=== PATIENT | male | born 1990 | race Caucasian/White ===

== ENCOUNTER 2025-03-16 13:18 | Emergency (ER) | payer OTHER, SELFPAY ==
[2025-03-16 13:22] VITALS: BMI 24.2
[2025-03-16 13:23] VITALS: BP 111/75
[2025-03-16 13:25] VITALS: BP 111/75
--- NOTE | 2025-03-16 13:35 | ED.GENMED ---
History of Present Illness
General
Chief Complaint: Abdominal Symptoms
Source: patient
Exam Limitations: none
Time Seen by Provider: 03/16/25 13:29
Nursing documentation reviewed up to this point in time: agreed with
History of Present Illness
History of Present Illness:
34-year-old male presenting to the emergency department today with concerns of nausea vomiting diarrhea starting this morning also has had some sweatiness and some lightheadedness. Denies any recent drug use or alcohol use. Denies any withdrawal
syndromes. Denies any chest pain shortness of breath.
Review of Systems
Review of Systems
Allergies reviewed?: Yes
All Other Systems: ROS reviewed and negative except as documented in HPI and ROS
Phy Exam
Physical Exam
Physical Exam:
GENERAL: Alert , in no apparent distress
EYE: pupils equal and reactive
NECK: Supple, no significant adenopathy.
ENT: o/p clr, mmm.
CARDIAC: Regular rate and rhythm .
LUNGS: Clear breath sounds bilaterally, no acute respiratory distress, no wheezes/rales/rhonchi
ABDOMEN: Soft, without focal tenderness, no r/g, no cvat
NEUROLOGICAL: Alert and oriented, no focal neuro deficits
SKIN: Warm and dry, skin intact.
MUSCULOSKELETAL: No edema, well perfused.
PSYCH: Normal and appropriate interaction.
Course
Orders/Labs/Results
Orders:
Orders
03/16/25 13:32
Complete Blood Count/With Diff Urgent
Comprehensive Metabolic Panel Urgent
03/16/25 13:33
Urinalysis Reflex To Culture Urgent
0.9% Sodium Chloride 1000 ml [Nss] 1,000 ml IV BOLUS
Famotidine [Pepcid] 20 mg IV NOW STA
Ondansetron Injectable [Zofran] 4 mg IV NOW STA
Abnormal Lab Results
03/16/25
13:32
RBC 6.30 H 10^6/uL
(4.70-6.10)
MCV 79.7 L fL
(80.0-94.0)
MCH 26.2 L pg
(27.0-31.0)
MCHC 32.9 L g/dL
(33.0-37.0)
MPV 11.2 H fL
(7.4-10.4)
Absolute Neuts (auto) 9.1 H 10^3/uL
(1.4-6.5)
Absolute Lymphs (auto) 0.5 L 10^3/uL
(1.2-3.4)
Neutrophils % 87.8 H %
(42.2-75.2)
Lymphocytes % 5.2 L %
(20.5-51.1)
Glucose 133 H mg/dl
(70-99)
Total Protein 8.5 H g/dl
(6.3-8.2)
Albumin 5.5 H g/dl
(3.5-5.0)
03/16/25 13:32
03/16/25 13:32
Vital Signs
Initial and Last Documented VS:
Initial Vital Signs
Pulse Resp
65 18
03/16/25 13:21 03/16/25 13:21
Last Documented Vital Signs
Temp Pulse Resp BP Pulse Ox
97.5 F 88 23 112/71 100
03/16/25 13:23 03/16/25 14:30 03/16/25 14:30 03/16/25 14:00 03/16/25 14:30
MDM/Problems Addressed
MDM/Problems Addressed:
34-year-old male presenting to the emergency department today with concerns of nausea vomiting diarrhea starting this morning intermittent abdominal cramping but no ongoing abdominal pain. No pain to palpation here. Vital signs normal on arrival.
Patient feeling much better after medications here symptoms seem to be consistent with likely stomach bug plan for symptomatic management as outpatient. Return precautions given.
*Pulse Oximetry
SaO2: 100
Oxygen Mode of Delivery: Room air
Patient hypoxic: no (100)
*Critical Care Note
Total Time (30-74mins, 75-104mins- exclusive of procedures): Not Applicable
ED Attending Note
-
Portions of this chart may have been created with voice recognition software.� Occasional wrong word or��sound alike� substitutions may have occurred due to the inherent limitations of voice recognition software.
Discharge Plan
Departure
Patient Disposition: Home (Routine Discharge)
Date of Disposition: 03/16/25
Time of Disposition: 14:44
Patient with high blood pressure during this ER visit?: No
Condition: Good
Covid-19: Not Applicable
Discharge Problem:
Vomiting and diarrhea
Instructions: Diarrhea in teens and adults, Nausea and Vomiting, Adult (DC)
Prescriptions:
New
ondansetron 4 mg tablet,disintegrating
4 mg PO Q6H PRN (Reason: nausea and vomiting) Qty: 7 0RF
Referrals:
[facility] [Family Provider, General]
Activity Restrictions/Additional Instructions:
You came to the emergency department today with concerns of nausea vomiting diarrhea. Please take the Zofran to help with your symptoms. Additionally over the next 24 to 48 hours please have the BRAT diet which is bananas rice applesauce and toast
which will be easier on your stomach as it recovers. Return for any worsening, new or concerning symptoms
Interventions
Interventions:
*Risk Screen - Suicide Last Done: 03/16/25 13:23
*General Assessment Last Done: 03/16/25 13:23
*Neglect/Abuse Screening Last Done: 03/16/25 13:23
*ED- Fall Risk Assessment Last Done: 03/16/25 13:23
*ED COVID-19 Vaccine History Last Done: 03/16/25 13:23
*ED Influenza Vaccine History Last Done: 03/16/25 13:23
VR-Ibgyjj-Lsutgvzngd Assessment Last Done: 03/16/25 13:23
Discharge Date and Time
Print Language: SETSWANA
[2025-03-16] MEDS: ZOFRAN 4 MG IV (13:40)
[2025-03-16] MEDS: NSS 1000 IV (13:40)
[2025-03-16] MEDS: PEPCID 20 MG IV (13:40)
[2025-03-16 13:46] LABS: Hematocrit 50.2 % (39.0-52.0); Hemoglobin 16.5 g/dL (13.0-18.0); Mean Corp Hgb Conc. 32.9 g/dL (33.0-37.0); Mean Corpuscular Volume 79.7 fL (80.0-94.0); Nucleated Red Blood Cells % 0 % (-); Platelet Count 222 10^3/uL (130-400); Red Cell Dist. Width 13.4 % (11.5-14.5)
[2025-03-16 14:00] VITALS: BP 112/71
[2025-03-16 14:03] LABS: ALT (SGPT) 36 U/L (0-50); AST (SGOT) 32 U/L (17-59); Albumin 5.5 g/dl (3.5-5.0); Alkaline Phosphatase 66 U/L (38-126); Blood Urea Nitrogen 18 mg/dl (9-20); Calcium 10.2 mg/dl (8.4-10.2); Carbon Dioxide 27 mmol/L (22-30); Chloride 103 mmol/L (98-107); Estimated Creatinine Clearance 83 ml/min; Glucose 133 mg/dl (70-99); Potassium 5.1 mmol/L (3.5-5.1); Sodium 141 mmol/L (135-145); Total Protein 8.5 g/dl (6.3-8.2); eGFR > 60.00
== END 2025-03-16 15:31 ==
LOC: EMR 13:18
PROVIDERS: EMERGENCY PHYSICIAN Student in an Organized Health Care Education/Training Program
DX: R11.10 Vomiting, unspecified (principal); R19.7 Diarrhea, unspecified
CPT/HCPCS: 99284; 96374; 96375; 96361; 80053; 85025